=== PATIENT | male | born 1950 | race American Indian/Alaskan Native ===

== ENCOUNTER 2019-10-08 08:40 | Day surgery (SDC) | payer OTHER ==
[~2019-10-08 08:40] MED LIST: CARV6.25 PO; CHOL10002 PO; CLON1 PO; NITR.4SL SL; SIMV10 PO; TERA5 PO; WARF5 PO
--- NOTE | 2019-10-08 10:56 | NUR ---
PATIENT STATES HE HAS BEEN HAVING NUMBNESS AND TINGLING IN LEGS THAT GETS WORSE WITH WALKING AND IS VERY PAINFUL. PT AWARE TO REPORT ANY INCREASE IN DISCOMFORT AND REPORT AND PAIN AT LOWER MID BACK BIOPSY SITE. NO BLEEDING OR SWELLING NOTED AT SITE ON ASSESSMENT. WILL CONTINUE TO MONITOR. GAVE PT COFFEE AND WATER PER REQUEST. REPOSTIONED TO SEMI SMITH AND RAISED KNEES FOR COMFORT.
--- NOTE | 2019-10-08 11:43 | NUR ---
Patient up to Ambulate independently. Gait steady. Discharge instructions reviewed with patient. Patient verbalizes understanding. Copy given to patient to take home. Patient States Post-Procedure ride home has been arranged. ALL BELONINGS RETURNED TO PATIENT. BIOPSY SITE REMAINS SLEAR. NO INCREASE IN NUMBNESS OR TINGLING TO BLE.
== END 2019-10-08 22:53 | disposition home or self-care (01) ==
LOC: RAD 08:40 → CT 10:00 → RAD 22:53
DX: M43.16 Spondylolisthesis, lumbar region (principal); E66.01 Morbid (severe) obesity due to excess calories; I48.91 Unspecified atrial fibrillation
CPT/HCPCS: 62304; 72132; Q9966

== ENCOUNTER → 2020-04-02 | Outpatient (CLI) | payer OTHER | END | disposition home or self-care (01) | LOC: LAB SHORT 17:00 → LAB 17:00 | DX: L08.9 Local infection of the skin and subcutaneous tissue, unspecified (principal) | CPT/HCPCS: 87070; 87075; 87077; 87147; 87186; 87205 ==

== ENCOUNTER 2023-01-31 05:56 | Day surgery (SDC) | payer OTHER ==
[~2023-01-31] VITALS: Ht 170.2 cm; Wt 115.0 kg
[~2023-01-31 05:56] MED LIST changes: +ALLO100 PO; +ELIQUIS5 M2 PO; +FURO20 PO; +GABA300 PO
[2023-01-31] MEDS ORDERED: POTA10T PO (06:31)
--- NOTE | 2023-01-31 08:30 | NUR ---
PATIENT AWAKE AND ORIENTED. LEFT PACER SITE DRESSING D&I. NO HEMATOMA, NO BLEEDING.
[2023-01-31 08:45] VITALS: BP 129/63
[2023-01-31 09:00] VITALS: BP 108/73
[2023-01-31 09:15] VITALS: BP 104/91
[2023-01-31 09:30] VITALS: BP 118/63
--- NOTE | 2023-01-31 09:30 | NUR ---
SITE UNCHANGED. PATIOENT A&O.
[2023-01-31] MEDS ORDERED: CEPH500 PO (09:42)
--- NOTE | 2023-01-31 10:12 | NUR ---
DR RAMÍREZ HERE TO SPEAK TO PATIENT. PATIENT AND DAUGHTER VERBALIZED UNDERSTANDING OF DISCHARGE INSTRUCTIONS AND PRECAUTIONS. IV SITE DCED WITH CATHETER INTACT.
--- NOTE | 2023-01-31 10:25 | NUR ---
PATIENT DISCHARGED HOME. NO FURTHER QUESTIONS, TRANSFERRED VIA WHEEL CHAIR TO WAITING CAR. DAUGHTER DRIVING.
== END 2023-01-31 10:25 | disposition home or self-care (01) ==
LOC: MHTC 05:56
DX: Z45.010 Encounter for checking and testing of cardiac pacemaker pulse generator [battery] (principal); I27.20 Pulmonary hypertension, unspecified; I10 Essential (primary) hypertension; I34.0 Nonrheumatic mitral (valve) insufficiency; Z95.1 Presence of aortocoronary bypass graft
CPT/HCPCS: 33228; 99152; 99153; C1781; C1785; J0690; J1644; J2250; J3010; J7030; J7040; J7050

== ENCOUNTER → 2024-02-21 | Outpatient (CLI) | payer OTHER ==
[~2024-02-21] MED LIST changes: +CEPH500 PO; +POTA10T PO
== END | disposition home or self-care (01) ==
LOC: LAB SHORT 17:14 → LAB 17:14
DX: R31.0 Gross hematuria (principal)
CPT/HCPCS: 87086